=== PATIENT | male | born 1985 | race Caucasian/White ===

== ENCOUNTER 2019-07-04 07:27 | Emergency (ER) | payer OTHER ==
[~2019-07-04] VITALS: Ht 182.9 cm; Wt 83.9 kg
[2019-07-04] MEDS ORDERED: BUSPIRONE HCL5 MG PO (07:36)
[2019-07-04] MEDS ORDERED: ALPRAZOLAM ER1 MG PO (07:36)
[2019-07-04] MEDS ORDERED: AUGMENTIN 875-1 EACH PO (08:51)
[2019-07-04] MEDS ORDERED: MOBIC15 MG PO (08:53)
[2019-07-04 09:09] VITALS: BP 116/86
== END 2019-07-04 09:32 | disposition home or self-care (01) ==
LOC: ER 07:27
DX: S61.052A Open bite of left thumb without damage to nail, initial encounter (principal); Z79.899 Other long term (current) drug therapy; W55.01XA Bitten by cat, initial encounter; Y93.89 Activity, other specified; Y92.89 Other specified places as the place of occurrence of the external cause; Y99.8 Other external cause status